=== PATIENT | male | born 1970 | race Caucasian/White ===

== ENCOUNTER → 2017-04-29 | Outpatient (CLI) | payer OTHER ==
[~2017-04-29] MED LIST: Adult Low Dose81 MG PO; Advil200 M1 PO; BIOTIN-D1 GM; CALCA400CH; CVS DAILY GUM200 MCG; Co Q-10100 MG PO; DIMETHYL SULFOXIDE; ERGO400; FLUCONAZOLE; KRILL OIL500 MG; MAGOXI400; MONT10T PO; NAPR220; Nasonex17 GM; PANT20 PO
[2017-05-02 14:29] LABS: Stool Occult Bld Immuno 1 Negative (NEGATIVE); Stool Occult Bld Immuno 2 Negative (NEGATIVE)
== END ==
LOC: OLS 16:00
PROVIDERS: Internal Medicine Gastroenterology
DX: Z80.0 Family history of malignant neoplasm of digestive organs (principal)
CPT/HCPCS: 82274

== ENCOUNTER 2017-05-08 12:01 | Day surgery (SDC) | payer OTHER ==
[~2017-05-08] VITALS: Ht 172.7 cm; Wt 90.7 kg
== END 2017-05-08 13:50 | disposition home or self-care (01) ==
LOC: ORSCSDS 12:01
PROVIDERS: Internal Medicine Gastroenterology
PROC: 0D758ZZ Dilation of Esophagus, Via Natural or Artificial Opening Endoscopic (ICD-10-PCS; principal; 2017-05-08 13:00)
PROC: 0DB68ZX Excision of Stomach, Via Natural or Artificial Opening Endoscopic, Diagnostic (ICD-10-PCS; principal; 2017-05-08 13:00)
PROC: 0DB58ZX Excision of Esophagus, Via Natural or Artificial Opening Endoscopic, Diagnostic (ICD-10-PCS; principal; 2017-05-08 13:00)
DX: R13.14 Dysphagia, pharyngoesophageal phase (principal); K29.50 Unspecified chronic gastritis without bleeding; B96.81 Helicobacter pylori [H. pylori] as the cause of diseases classified elsewhere; Z86.19 Personal history of other infectious and parasitic diseases
CPT/HCPCS: 88305; 88342; J7120